=== PATIENT | male | born 1940 | race African-American/Black ===

== ENCOUNTER 2022-10-09 09:40 | Outpatient (CLI) | payer MEDICARE, MEDICAID | END 2022-10-09 09:41 | disposition home or self-care (01) | LOC: NAV RAD 09:40 | PROVIDERS: ATTEND Family Medicine | DX: M25.512 Pain in left shoulder (principal) ==

== ENCOUNTER 2023-10-21 17:37 | Outpatient (CLI) | payer OTHER | END 2023-10-21 17:38 | disposition home or self-care (01) | LOC: NAV RAD 17:37 | PROVIDERS: ATTEND Family Medicine | DX: M47.22 Other spondylosis with radiculopathy, cervical region (principal) | CPT/HCPCS: 72040 ==

== ENCOUNTER 2023-11-04 19:00 | Emergency (ER) | payer OTHER ==
[~2023-11-04 19:00] MED LIST: Iopamidol 370 76% 100 ML VIAL ONE
[2023-11-04 20:13] LABS: ALT (SGPT) 8 U/L (8-55); AST (SGOT) 11 U/L (5-34); Albumin 3.8 g/dL (3.4-4.8); Alkaline Phosphatase 54 U/L (40-110); Anion Gap 17 mmol/L (10-20); BUN (Urea Nitrogen) 29 mg/dL (8.4-25.7); Bilirubin, Total 0.9 mg/dL (0.2-1.2); Calc. Creatinine Clearance 0 mL/min (70-130); Calcium 10.2 mg/dL (7.8-10.44); Carbon Dioxide 22 mmol/L (23-31); Chloride 104 mmol/L (98-107); Estimated GFR 31; Globulin 4.2 g/dL (2.4-3.5); Glucose 114 mg/dL (83-110); Lipase 11 U/L (8-78); Potassium 3.3 mmol/L (3.5-5.1); Sodium 140 mmol/L (136-145); Troponin I 0.036 ng/mL (< 0.028)
[2023-11-04 20:39] LABS: INR-International Normal Ratio 1.2; Prothrombin Time 15.5 sec (12.0-14.7)
[2023-11-04 20:40] LABS: PTT 30.4 sec (22.9-36.1)
[2023-11-04 20:41] LABS: #Lymphocytes 0.4 thou/uL (1.20-3.40); #Monocytes 0.6 thou/uL (0.11-0.59); #Neutrophils 4.2 thou/uL (1.40-6.50); %Basophils 0.3 % (0.0-1.0); %Eosinophils 0.3 % (0.0-10.0); %Lymphocytes 7.4 % (21.0-51.0); %Monocytes 11.7 % (0.0-10.0); %Neutrophils 80.3 % (42.0-75.0); Hematocrit 34.9 % (42.0-52.0); Hemoglobin 9.8 g/dL (14.0-18.0); Mean Corpuscular HGB CONC 28.1 g/dL (32.0-36.0); Mean Corpuscular Hemoglobin 18.8 pg (27.0-31.0); Mean Corpuscular Volume 66.8 fl (78.0-98.0); Mean Platelet Volume 9.5 fL (7.4-10.4); Platelet Count 115 10x3/uL (130-400); RBC Distribution Width 13.8 % (11.5-14.5); Red Blood Cell (RBC) Count 5.23 mill/uL (4.70-6.10); White Blood Cell (WBC) Count 5.2 10x3/uL (4.8-10.8)
[2023-11-04] MEDS ORDERED: Sodium Chloride 0.9% 500 ML ONE (20:43)
[2023-11-04] MEDS ORDERED: Ibuprofen 200 MG TAB ONE (21:07)
[2023-11-04] MEDS ORDERED: cefTRIAXone (ROCEPHIN) 2 GM VIAL ONE (21:09)
[2023-11-04] MEDS ORDERED: Sodium Chloride 0.9% 100 ML ONE (21:09)
[2023-11-04 22:08] LABS: Influenza A by NAA Not Detected (NotDetected); Influenza B by NAA Not Detected (NotDetected); SARS-CoV-2 NAA Rapid Test DETECTED (NotDetected)
[2023-11-04] MEDS ORDERED: Clopidogrel Bisulfate 75 MG TAB ONE (23:02)
[2023-11-04 23:16] LABS: Bilirubin Negative (Negative); Blood, Urine Negative (Negative); Clarity Clear (Clear); Glucose, Urine (Dipstick) Negative (Negative); Ketone, Urine Negative (Negative); Leukocyte Moderate (Negative); Nitrite Negative (Negative); Protein, Urine (Dipstick) Negative (Neg-Trace); Specific Gravity, Urine 1.015 (1.005-1.030); pH, Urine 5.5 (5.0-9.0)
[2023-11-04 23:22] LABS: Bacteria/HPF Rare-Few HPF (None Seen); CAUTI Indications for Culture Fever or rigors; RBC/HPF 0-3 HPF (0-3); WBC/HPF 21-50 HPF (0-3)
[2023-11-04 23:23] LABS: Lactic Acid 1.2 mmol/L (0.5-2.2)
[2023-11-04 23:23] LABS: Urine Culture Reflex Yes Yes
[2023-11-04 23:33] LABS: Troponin I 0.048 ng/mL (< 0.028)
[2023-11-05 02:56] LABS: Troponin I 0.058 ng/mL (< 0.028)
== END 2023-11-05 03:30 | disposition short-term general hospital (02) ==
LOC: NAV ERS 19:00
DX: R53.1 Weakness (principal); R47.01 Aphasia; E11.9 Type 2 diabetes mellitus without complications; I10 Essential (primary) hypertension; Z87.891 Personal history of nicotine dependence; Z79.899 Other long term (current) drug therapy
CPT/HCPCS: 0240U; 70450; 70496; 70498; 71045; 80053; 81001; 82962; 83605; 83690; 84484 ×2; 85025; 85610; 85730; 87040; 87086; 93005; J0696; J3490; J7030; Q9967; 36416; 51701; 87077; 96365; 36415-59

== ENCOUNTER 2024-01-01 18:05 | Emergency (ER) | payer OTHER, MEDICAID | END 2024-01-01 22:42 | LOC: NAV ERS 18:05 | DX: S00.03XA Contusion of scalp, initial encounter (principal); R03.0 Elevated blood-pressure reading, without diagnosis of hypertension; E11.9 Type 2 diabetes mellitus without complications; I10 Essential (primary) hypertension; E78.5 Hyperlipidemia, unspecified; I48.91 Unspecified atrial fibrillation; Z79.899 Other long term (current) drug therapy; Z79.01 Long term (current) use of anticoagulants; Z79.82 Long term (current) use of aspirin; W22.8XXA Striking against or struck by other objects, initial encounter | CPT/HCPCS: 70450 ==